=== PATIENT | male | born 1960 | race Caucasian/White ===

== ENCOUNTER → 2019-07-07 08:41 | Outpatient (CLI) | payer MEDICARE, MEDICAID, SELFPAY ==
[2019-07-07 09:14] LABS: Hematocrit 42.1 % (41-53); Hemoglobin 14.3 g/dL (13.5-17.5); Mean Corpuscular HGB Conc 33.9 % (30-36); Mean Corpuscular Hemoglobin 29.6 PG (26-34); Mean Corpuscular Volume 87.4 fL (80-100); Platelet Count 243 X10^3/uL (150-400); Red Blood Cell Count 4.82 X10^6/uL (4.5-5.9); Red Cell Distribution Width 13.3 % (11.6-14.8); White Blood Cell Count 9.6 X10^3/uL (4.5-11.0)
[2019-07-07 09:44] LABS: Alanine Aminotransferase 30 IU/L (21-72); Albumin 4.5 g/dL (3.5-5.0); Albumin Globulin Ratio 1.8 (1.0-2.8); Alkaline Phosphatase 59 U/L (38-126); Aspartate Aminotransferase 22 IU/L (17-59); Bilirubin Total 0.5 mg/dL (0.2-1.3); Blood Urea Nitrogen 39 mg/dL (9-20); Calcium 10.2 mg/dL (8.4-10.2); Carbon Dioxide 20 mmol/L (22-32); Chloride 108 mmol/L (98-107); Cholesterol 168 mg/dL (140-199); Estimated Glomerular Filt Rate 25.5 mL/min (>60); Globulin 2.5 g/dL (1.7-4.1); Glucose 102 mg/dL (70-100); HDL Cholesterol 48 mg/dL (40-60); HEMOLYSIS 15 (0-50); LDL Cholesterol Calculated 90 mg/dL (<100); Potassium 4.8 mmol/L (3.4-5.1); Sodium 141 mmol/L (137-145); Triglycerides 148 mg/dL (35-150)
[2019-07-12 08:58] LABS: Lamotrigine Lamictal 2.9 mcg/mL (4.0-18.0)
== END ==
PROVIDERS: PCP Nurse Practitioner Family; Visit Provider Nurse Practitioner Family
DX: I50.9 Heart failure, unspecified (principal); Z79.899 Other long term (current) drug therapy
CPT/HCPCS: 36415; 80053; 80061; 80175; 85027

== ENCOUNTER → 2019-07-12 08:54 | Outpatient (CLI) | payer MEDICARE, MEDICAID, SELFPAY ==
[2019-07-12 09:03] LABS: Bacteria Urine None Seen
[2019-07-12 09:25] LABS: Appearance Urine UA CLEAR; Bilirubin Urine UA NEGATIVE (NEGATIVE); Color Urine UA YELLOW; Glucose Urine UA NEGATIVE (Negative); Ketones Urine UA NEGATIVE (NEGATIVE); Leukocyte Esterase Urine UA NEGATIVE (NEGATIVE); Nitrite Urine UA NEGATIVE (Negative); Occult Blood Urine UA NEGATIVE (Negative); Protein Urine UA NEGATIVE (Negative); Urobilinogen Urine UA 0.2 E.U./dL (0.2)
[2019-07-12 09:31] LABS: Culture Indicated Urine Cult Not Indicated; RBC Urine 0-1/HPF (0-5/HPF); Squamous Epithelial Cell Urine 0-1 /HPF (0-5/HPF); WBC Urine 0-1/HPF (0-5/HPF)
[2019-07-12 10:21] LABS: Creatinine Urine Random 66.2 mg/dL
[2019-07-12 10:26] LABS: Microalbumi Creatinin Ratio Ur 86.1 ug/mg CR (<30); Microalbumin Urine Random 5.7 mg/dL (0-1.6)
== END ==
PROVIDERS: PCP Nurse Practitioner Family; Visit Provider Nurse Practitioner Family
DX: I10 Essential (primary) hypertension (principal); R79.89 Other specified abnormal findings of blood chemistry
CPT/HCPCS: 81001; 82043; 82570

== ENCOUNTER → 2019-07-25 08:46 | Outpatient (CLI) | payer MEDICARE, SELFPAY ==
--- NOTE | 2019-07-25 08:47 | DI.US.S_ITS ---
PROCEDURE: US RENAL COMPLETE INDICATIONS: elevated creatinine TECHNIQUE: Real-time scanning was performed of the kidneys and bladder, with image documentation. COMPARISON: None. FINDINGS: Kidneys: Kidneys are normal in size. Right kidney measures 13.0 cm long; left kidney measures 13.3 cm long. Right renal cortical thickness is 1.9 cm; left renal cortical thickness is 1.4 cm. Renal cortical echotexture is normal. No hydronephrosis or shadowing nephrolithiasis. No suspicious solid mass lesions. Bilateral renal cysts are identified. The largest measures up to 1.7 cm within the mid left kidney. Bladder: Pre-void bladder volume is 665 mL. Post-void residual is 123 mL. Pre-void images demonstrate no intraluminal masses or stones. On pre-void images, bilateral ureteral jets are noted with color Doppler interrogation. Miscellaneous: No free pelvic fluid. The prostate is mildly enlarged with a volume of 82 mL. Incidental note is made of increased echogenicity of the liver when compared to the right kidney. IMPRESSION: 1. No hydronephrosis or shadowing nephrolithiasis. 2. Mild residual urine is present within the bladder after voiding, which may be related to mildly enlarged lobular prostate. Please correlate clinically. 3. Probable hepatic steatosis. Dictated by: Jason Lee M.D. on 07/25/2019 at 9:09 Approved by: Jason Lee M.D. on 07/25/2019 at 9:11
== END ==
PROVIDERS: PCP Nurse Practitioner Family; Visit Provider Nurse Practitioner Family
DX: R79.89 Other specified abnormal findings of blood chemistry (principal)
CPT/HCPCS: 76770

== ENCOUNTER → 2019-07-28 10:52 | Outpatient (CLI) | payer MEDICARE, SELFPAY ==
[2019-07-28 11:19] LABS: RBC Urine None Seen (0-5/HPF)
[2019-07-28 13:11] LABS: Appearance Urine UA CLEAR; Bilirubin Urine UA NEGATIVE (NEGATIVE); Color Urine UA YELLOW; Glucose Urine UA NEGATIVE (Negative); Ketones Urine UA NEGATIVE (NEGATIVE); Leukocyte Esterase Urine UA NEGATIVE (NEGATIVE); Nitrite Urine UA NEGATIVE (Negative); Occult Blood Urine UA NEGATIVE (Negative); Protein Urine UA NEGATIVE (Negative); Specific Gravity Urine UA 1.015 (1.000-1.035); Urobilinogen Urine UA 0.2 E.U./dL (0.2)
[2019-07-28 14:00] LABS: Bacteria Urine Occasional (0-1); Culture Indicated Urine Cult Not Indicated; WBC Urine 0-1/HPF (0-5/HPF)
[2019-07-28 14:06] LABS: Blood Urea Nitrogen 19 mg/dL (9-20); Calcium 10.6 mg/dL (8.4-10.2); Carbon Dioxide 27 mmol/L (22-32); Chloride 101 mmol/L (98-107); Estimated Glomerular Filt Rate > 60.0 mL/min (>60); Glucose 97 mg/dL (70-100); HEMOLYSIS < 15 (0-50); Potassium 4.3 mmol/L (3.4-5.1); Sodium 141 mmol/L (137-145)
== END ==
PROVIDERS: PCP Nurse Practitioner Family; Visit Provider Nurse Practitioner Family
DX: R79.89 Other specified abnormal findings of blood chemistry (principal); N17.9 Acute kidney failure, unspecified
CPT/HCPCS: 36415; 80048; 81001

== ENCOUNTER → 2019-08-02 08:43 | Outpatient (CLI) | payer MEDICARE, SELFPAY ==
[2019-08-04 15:04] LABS: Calcium 10.3 mg/dL (8.6-10.3); Parathyroid Hormone, Intact 50 pg/mL (14-64)
== END ==
PROVIDERS: PCP Nurse Practitioner Family; Visit Provider Nurse Practitioner Family
DX: E83.52 Hypercalcemia (principal)
CPT/HCPCS: 36415; 83970

== ENCOUNTER → 2019-09-25 10:45 | Outpatient (CLI) | payer MEDICARE, MEDICAID, SELFPAY ==
[2019-09-25 14:01] LABS: Prostate Specific Antigen Scrn 8.84 ng/mL (0.1-4.0)
== END ==
PROVIDERS: PCP Family Medicine; Visit Provider Family Medicine
DX: Z12.5 Encounter for screening for malignant neoplasm of prostate (principal); Z76.89 Persons encountering health services in other specified circumstances
CPT/HCPCS: G0103

== ENCOUNTER → 2019-10-09 08:40 | Outpatient (CLI) | payer MEDICARE, MEDICAID, SELFPAY ==
[2019-10-09 09:42] LABS: Hemoglobin A1C% w Est Avg Glu 5.2 % (4.0-6.0)
[2019-10-09 09:53] LABS: B Type Natriuretic Peptide < 100 (<100)
[2019-10-09 10:02] LABS: Alanine Aminotransferase 28 IU/L (<50); Albumin 4.6 g/dL (3.5-5.0); Albumin Globulin Ratio 1.8 (1.0-2.8); Alkaline Phosphatase 68 U/L (38-126); Aspartate Aminotransferase 31 IU/L (17-59); BUN Creatinine Ratio 15.6 (6-22); Bilirubin Total 0.6 mg/dL (0.2-1.3); Blood Urea Nitrogen 14 mg/dL (9-20); Calcium 9.6 mg/dL (8.4-10.2); Carbon Dioxide 28 mmol/L (22-32); Chloride 98 mmol/L (98-107); Estimated Glomerular Filt Rate > 60.0 mL/min (>60); Globulin 2.6 g/dL (1.7-4.1); Glucose 108 mg/dL (70-100); HEMOLYSIS < 15 (0-50); Sodium 135 mmol/L (137-145); Total Protein 7.2 g/dL (6.3-8.2)
[2019-10-09 10:32] LABS: TSH w/ Reflex to FT4 0.31 uIU/mL (0.47-4.68)
[2019-10-09 11:12] LABS: Free T4, Direct Thyroxine 1.64 ng/dL (0.78-2.19)
== END ==
PROVIDERS: PCP Family Medicine; Visit Provider Family Medicine
DX: I50.9 Heart failure, unspecified (principal); I10 Essential (primary) hypertension; F31.13 Bipolar disorder, current episode manic without psychotic features, severe
CPT/HCPCS: 36415; 80053; 83036; 83880; 84153; 84439; 84443

== ENCOUNTER → 2019-10-16 08:40 | Outpatient (CLI) | payer MEDICARE, MEDICAID, SELFPAY ==
[2019-10-16 10:28] LABS: Free T4, Direct Thyroxine 1.23 ng/dL (0.78-2.19)
[2019-10-16 10:42] LABS: Thyroid Stimulating Hormone 0.23 uIU/mL (0.47-4.68)
[2019-10-19 15:40] LABS: Lamotrigine Lamictal 4.3 mcg/mL (4.0-18.0)
== END ==
PROVIDERS: PCP Family Medicine; Visit Provider Psychiatry & Neurology Psychiatry
DX: F31.9 Bipolar disorder, unspecified (principal)
CPT/HCPCS: 36415; 80175; 84439; 84443